=== PATIENT | female | born 1995 | race Two or more races ===

== ENCOUNTER 2018-07-16 22:49 | Emergency (ER) | payer MEDICAID, OTHER ==
[~2018-07-16] VITALS: Ht 154.9 cm; Wt 65.5 kg
[2018-07-16 23:36] LABS: Urine Bacteria NONE SEEN /hpf (None Seen); Urine Blood Negative /uL (Negative); Urine Mucus FEW (None Seen); Urine Specific Gravity 1.033 (1.001-1.035); Urine WBC 1 /hpf (0 - 5)
[2018-07-17 03:27] VITALS: BP 97/51
== END 2018-07-17 03:26 | disposition home or self-care (01) ==
LOC: ER 22:57
DX: O26.891 Other specified pregnancy related conditions, first trimester (principal); R10.84 Generalized abdominal pain; Z3A.01 Less than 8 weeks gestation of pregnancy
CPT/HCPCS: 36415; 76801; 81001; 81025; 84702; 86901

== ENCOUNTER 2019-02-02 16:40 | Observation (INO) | payer MEDICAID ==
[~2019-02-02] VITALS: Ht 157.5 cm; Wt 77.1 kg
[2019-02-05] MEDS ORDERED: PREN-96 PO (12:26)
[2019-02-05] MEDS ORDERED: FERR18TA2 PO (12:26)
== END 2019-02-05 12:20 | disposition home or self-care (01) | DRG 563 ==
LOC: LDRP 02-05 11:15
PROVIDERS: ADMIT Obstetrics & Gynecology; ATTEND Obstetrics & Gynecology
DX: O60.03 Preterm labor without delivery, third trimester (principal); Z3A.35 35 weeks gestation of pregnancy
CPT/HCPCS: 76818; G0378

== ENCOUNTER 2019-02-10 10:12 | Observation (INO) | payer MEDICAID ==
[~2019-02-10 10:12] MED LIST: FERR18TA2 PO; PREN-96 PO
[2019-02-10] MEDS ORDERED: PREN-96 PO (11:03)
[2019-02-10] MEDS ORDERED: FERR-7 PO (11:06)
== END 2019-02-10 11:20 | disposition home or self-care (01) | DRG 563 ==
LOC: LDRP 10:12
PROVIDERS: ADMIT Obstetrics & Gynecology; ATTEND Obstetrics & Gynecology
DX: O60.03 Preterm labor without delivery, third trimester (principal); Z3A.36 36 weeks gestation of pregnancy
CPT/HCPCS: 76818; A6257; G0378; 59025; 81002

== ENCOUNTER 2019-03-04 04:17 | Inpatient (IN) | payer MEDICAID ==
[~2019-03-04] VITALS: Ht 160 cm; Wt 79.8 kg
[~2019-03-04 04:17] MED LIST changes: +FERR-7 PO; -FERR18TA2 PO
[2019-03-04] MEDS ORDERED: LACT. RINGERS/OXYTOCIN 20UNITS 1,000 ML IV SCH (04:36)
[2019-03-04] MEDS ORDERED: PENICILLIN G POT 5MIL/D5 50ML 50 ML IV ONE (04:45)
[2019-03-04] MEDS ORDERED: DERMOPLAST 60ML BOTTLE TOP PRN (04:45)
[2019-03-04] MEDS ORDERED: WITCH HAZEL-GLYCERIN PAD TOP PRN (04:45)
[2019-03-04] MEDS ORDERED: PHISODERM TOP SOLN 240ML BTL TOP PRN (04:45)
[2019-03-04 05:23] LABS: Basophils # (auto) 0 uL; Basophils % (auto) 0.3 % (0.0-2.0); Eosinophils # (auto) 0 uL; Eosinophils % (auto) 0.3 % (0.0-7.0); Hematocrit 36.4 % (36.0-46.0); Lymphocytes # (auto) 1.5 uL; Lymphocytes % (auto) 20.6 % (10.0-50.0); Mean Corpuscular Hemoglobin 28.7 pg (28.0-32.0); Mean Corpuscular Volume 86.9 fL (80.0-100.0); Monocytes # (auto) 0.4 uL; Monocytes % (auto) 5.3 % (0.0-12.0); Neutrophils # (auto) 5.4 uL; Neutrophils % (auto) 73.5 % (37.0-80.0); Nucleated Red Blood Cells % 0.1 %; Platelet Count (auto) 239 10^3/uL (140-450); Red Blood Cells 4.19 10^6/uL (4.0-5.20); White Blood Cell 7.3 10^3/uL (4.4-10.8)
[2019-03-04 05:46] LABS: Albumin 2.6 g/dL (3.4-5.0); Calcium 9.2 mg/dL (8.5-10.1); Potassium 3.6 mmol/L (3.5-5.1)
[2019-03-04 05:48] LABS: Alcohol, Urine < 3.0 mg/dL (0-5); Amphetamine Screen, Urine NEGATIVE (NEGATIVE); Barbiturate Scree,Urine NEGATIVE (NEGATIVE); Benzodiazephine Screen, Urine NEGATIVE (NEGATIVE); Cannabinoid Screen, Urine NEGATIVE (NEGATIVE); Cocaine Screen, Urine NEGATIVE (NEGATIVE); Opiate Scree,Urine NEGATIVE (NEGATIVE); Phencyclidine Screen, Urine NEGATIVE (NEGATIVE); Urine Bacteria MANY /hpf (None Seen); Urine Blood TRACE /uL (Negative); Urine Mucus FEW (None Seen); Urine Specific Gravity 1.027 (1.001-1.035); Urine WBC 71 /hpf (0 - 5)
[2019-03-04 05:49] LABS: BUN/Creatinine Ratio 26.2; Bilirubin, Total 0.4 mg/dL (0.2-1.0); INR 0.91 (0.9-1.15); Partial Thromboplastin Time 24.8 sec (23.64-32.05); Prothrombin Time 9.9 sec (9.06-12.60); Total Protein 6.7 g/dL (6.4-8.2)
[2019-03-04] MEDS ORDERED: TETRACAINE 1% INJ 2 ML VIAL IJ ONE (06:59)
[2019-03-04] MEDS ORDERED: fentaNYL CITRATE 100 MCG/2 ML VL ONE (07:16)
[2019-03-04] MEDS ORDERED: MIDAZOLAM HCL 1MG/1ML-2 ML VIAL ONE (07:16)
[2019-03-04] MEDS ORDERED: MORPHINE SULF(PF) 0.5MG/ML 10ML VIAL ONE (07:16)
[2019-03-04] MEDS ORDERED: ceFAZolin 1GM/50ML 50 ML IV SCH (07:30)
[2019-03-04] MEDS ORDERED: OXYTOCIN 10 UNIT/ML 10ML VIAL ONE (07:30)
[2019-03-04] MEDS ORDERED: ONDANSETRON HCL 4 MG/2 ML VIAL IV PRN ×2 (07:30→08:30)
[2019-03-04] MEDS ORDERED: MORPHINE SULFATE 4 MG/ML SYR/VIAL IV PRN (07:30)
[2019-03-04] MEDS ORDERED: ceFAZolin 1GM VL ONE (07:30)
[2019-03-04] MEDS ORDERED: KETOROLAC TROMETH 30 MG/ML 1ML VIAL IV PRN (07:30)
[2019-03-04] MEDS ORDERED: diphenhdrAMINE HCL 50 MG/1 ML VL IV PRN (08:30)
[2019-03-04] MEDS ORDERED: HYDROmorphone HCL 2 MG/ML VL IV PRN (08:30)
[2019-03-04] MEDS ORDERED: NALBUPHINE HCL 10 MG/1ml INJECTION SUBCUT ONE (08:30)
[2019-03-04] MEDS ORDERED: MIDAZOLAM HCL 1MG/1ML-2 ML VIAL IV PRN (08:30)
[2019-03-04] MEDS ORDERED: ePHEDrine SULFATE 50 MG/ML AMP IV PRN (08:30)
[2019-03-04] MEDS ORDERED: NALOXONE HCL 0.4 MG/ML VIAL IV PRN (08:30)
[2019-03-04] MEDS ORDERED: DexAMETHasone SOD PHOS 10MG/1ML VIAL INJ IV PRN (08:30)
[2019-03-04] MEDS ORDERED: PENICILLIN G POTASSIUM 2,500,000 UNITS in D5W 5% 50 ML IV SCH (09:00)
--- NOTE | 2019-03-04 09:30 | NUR ---
Post Op for LDRP: Received patient from PACU via bed to room 108 B. Patient A/A/Ox4, abdominal binder and bilateral SCD's are in place, IV fluids placed on pump and infusing per order, incisional site dressing clean/dry/intact and March Catheter to gravity draining clear yellow urine.Incentive Spirometer at bedside and instruction on proper use with return demonstration done by patient.
--- NOTE | 2019-03-04 09:50 | NUR ---
Teaching: Reviewed information in [facility] booklet with patient. Discussed benefits of and risks associated with not . Discussed different positions, proper latch, feeding cues, and baby-led . All questions and concerns addressed at this time. Patient verbalized understanding of information.
--- NOTE | 2019-03-04 09:55 | NUR ---
received report from sophia alvarado rn patient in stable condition.
--- NOTE | 2019-03-04 09:55 | NUR ---
REPORT GIVEN TO Lina BARRAZA RN, TRANSFERRED CARE ON STABLE MOTHER.
[2019-03-04] MEDS: LACTATED RINGER'S 1,000 ML IV SCH ×3 (09:59→17:00)
[2019-03-04] MEDS: LACT. RINGERS/OXYTOCIN 20UNITS 1,000 ML IV SCH ×2 (09:59→14:05)
[2019-03-04 11:00] VITALS: BP 104/68
[2019-03-04 15:00] VITALS: BP 105/63
[2019-03-04] MEDS: ceFAZolin 1GM/50ML 50 ML IV SCH ×2 (16:00→23:39)
--- NOTE | 2019-03-04 17:15 | NUR ---
mansi care done.with small bleeding.[place] bag emptied and obtained 600 ml of clear yellow colored urine.
[2019-03-04] MEDS ORDERED: IBUPROFEN 800 MG TAB PO PRN (19:45)
[2019-03-04] MEDS ORDERED: SIMETHICONE 80 MG CHEWABLE TABLET PO PRN (19:45)
[2019-03-04] MEDS ORDERED: HYDROcodone-ACET 5/325MG TAB PO PRN (19:45)
[2019-03-04 19:51] LABS: Basophils # (auto) 0 uL; Basophils % (auto) 0.3 % (0.0-2.0); Eosinophils # (auto) 0 uL; Eosinophils % (auto) 0.1 % (0.0-7.0); Hematocrit 30.9 % (36.0-46.0); Hemoglobin 10.2 g/dL (12.2-16.2); Lymphocytes # (auto) 1.5 uL; Lymphocytes % (auto) 17.9 % (10.0-50.0); Mean Corpuscular Hemoglobin 28.8 pg (28.0-32.0); Monocytes # (auto) 0.4 uL; Monocytes % (auto) 4.9 % (0.0-12.0); Neutrophils # (auto) 6.3 uL; Neutrophils % (auto) 76.8 % (37.0-80.0); Platelet Count (auto) 195 10^3/uL (140-450); Red Blood Cells 3.55 10^6/uL (4.0-5.20); White Blood Cell 8.2 10^3/uL (4.4-10.8)
[2019-03-04 19:55] LABS: Red Cell Distribution Width 23.3 % (11.8-14.3)
--- NOTE | 2019-03-04 21:10 | NUR ---
Ambulation: Patient OOB with standby assistance by RN. Patient ambulated to bathroom with steady gait. Patient unable to void at this time. [facility] teaching provided with returned demonstration by patient. Clean gown provided and bed linen changed. Patient ambulating at bedside at this time.
[2019-03-04] MEDS: DOCUSATE SOD 100 MG CAP PO SCH (22:00)
[2019-03-04 23:00] VITALS: BP 98/59
[2019-03-05 03:00] VITALS: BP 102/69
[2019-03-05 07:00] VITALS: BP 107/75
[2019-03-05 07:07] LABS: Basophils # (auto) 0 uL; Basophils % (auto) 0.4 % (0.0-2.0); Eosinophils # (auto) 0 uL; Eosinophils % (auto) 0.1 % (0.0-7.0); Hematocrit 32.1 % (36.0-46.0); Hemoglobin 10.5 g/dL (12.2-16.2); Lymphocytes # (auto) 1.1 uL; Lymphocytes % (auto) 13.8 % (10.0-50.0); Mean Corpuscular Hemoglobin 28.6 pg (28.0-32.0); Mean Corpuscular Hgb Conc. 32.7 g/dL (32.0-36.0); Mean Corpuscular Volume 87.7 fL (80.0-100.0); Monocytes # (auto) 0.4 uL; Monocytes % (auto) 4.8 % (0.0-12.0); Neutrophils # (auto) 6.3 uL; Neutrophils % (auto) 80.9 % (37.0-80.0); Nucleated Red Blood Cells % 0.1 %; Platelet Count (auto) 189 10^3/uL (140-450); Red Blood Cells 3.66 10^6/uL (4.0-5.20); White Blood Cell 7.8 10^3/uL (4.4-10.8)
[2019-03-05 07:32] LABS: Red Cell Distribution Width 23.7 % (11.8-14.3)
[2019-03-05] MEDS: ceFAZolin 1GM/50ML 50 ML IV SCH (07:51)
[2019-03-05 08:06] LABS: RPR Non Reactive (Non Reactive)
[2019-03-05] MEDS: DOCUSATE SOD 100 MG CAP PO SCH ×2 (10:00→22:19)
[2019-03-05] MEDS ORDERED: HYDROcodone-ACET 5/325MG TAB PO PRN ×2 (10:30)
[2019-03-05] MEDS ORDERED: IBUPROFEN 800 MG TAB PO PRN (10:30)
[2019-03-05 11:00] VITALS: BP 112/71
[2019-03-05] MEDS: HYDROcodone-ACET 5/325MG TAB PO PRN ×2 (11:08→20:33)
--- NOTE | 2019-03-05 11:35 | NUR ---
dr. smith was called and notified about the fever of the patient.temperature-101.4,received order to start zozyn 3.375 mg q 6 hrs and tylenol 650 mg po q 4 hrs for fever.
[2019-03-05] MEDS ORDERED: ACETAMINOPHEN 325 MG TAB PO ONE (11:40)
[2019-03-05] MEDS ORDERED: ACETAMINOPHEN 325 MG TAB PO PRN (11:45)
[2019-03-05] MEDS: SIMETHICONE 80 MG CHEWABLE TABLET PO SCH ×3 (12:00→22:19)
--- NOTE | 2019-03-05 13:00 | NUR ---
temperature re-checked - 99.[address] whitley is aware,no new orders received.
[2019-03-05] MEDS: PIPERACILLIN-TAZOB 3.375GM 100 ML IV SCH ×2 (14:00→20:21)
[2019-03-05 15:00] VITALS: BP 109/63
[2019-03-05 19:30] VITALS: BP 108/76
--- NOTE | 2019-03-05 19:30 | NUR ---
LOWER ABDOMINAL INCISION CLEAN, DRY AND WELL APPROXIMATED, MARIO PRESENT AND INTACT. SITE LEFT OPEN TO AIR. Addendum: 03/05/19 at 2314 by Jenn Sanchez RN Amended: Links added.
[2019-03-05] MEDS: FERROUS SULFATE 325 MG TAB PO SCH (22:19)
[2019-03-05 23:00] VITALS: BP 110/70
[2019-03-06] MEDS: PIPERACILLIN-TAZOB 3.375GM 100 ML IV SCH ×3 (02:27→14:12)
--- NOTE | 2019-03-06 03:00 | NUR ---
IV INFILTRATED 20G IV TO RIGHT FOREARM INFILTRATED. IV DC'D WITH CLEAN TECHNIQUE, PRESSURE DRESSING APPLIED TO SITE. 20G PERIPHERAL IV INITIATED TO LEFT HAND, SITE FLUSHES WITHOUT RESISTANCE. TRANSPARENT DRESSING APPLIED AND SITE SECURED. IV ANTIBIOTICS INFUSING PER ORDERS. NO DISTRESS NOTED.
[2019-03-06 03:30] VITALS: BP 95/61
[2019-03-06] MEDS: HYDROcodone-ACET 5/325MG TAB PO PRN ×2 (06:07→17:09)
[2019-03-06 07:30] VITALS: BP 89/42
[2019-03-06] MEDS: FERROUS SULFATE 325 MG TAB PO SCH ×2 (10:12→22:38)
[2019-03-06] MEDS: DOCUSATE SOD 100 MG CAP PO SCH ×2 (10:12→22:38)
[2019-03-06] MEDS: DOCUSATE CALCIUM 240 MG CAP PO SCH (10:12)
[2019-03-06] MEDS: SIMETHICONE 80 MG CHEWABLE TABLET PO SCH (11:35)
[2019-03-06 12:39] VITALS: BP 110/75
--- NOTE | 2019-03-06 14:56 | NUR ---
IV no longer patent, call made to Dr Gordon to inform her, new orders received to d/c Zosyn and change to Keflex 500mg PO QID
--- NOTE | 2019-03-06 15:22 | NUR ---
IV removal IV DC'd with clean sterile technique, catheter fully intact. Pressure dressing applied to site. Patient tolerated well.
[2019-03-06 15:30] VITALS: BP 106/73
[2019-03-06] MEDS: CEPHALEXIN 250 MG CAP PO SCH (17:43)
[2019-03-06 19:00] VITALS: BP 113/78
--- NOTE | 2019-03-06 19:00 | NUR ---
LOWER ABDOMINAL INCISION CLEAN, DRY AND WELL APPROXIMATED WITH MARIO PRESENT AND INTACT. SITE LEFT OPEN TO AIR. Addendum: 03/06/19 at 2100 by Jenn Sanchez RN Amended: Links added.
[2019-03-06 23:30] VITALS: BP 118/72
[2019-03-07] MEDS: CEPHALEXIN 250 MG CAP PO SCH ×3 (00:05→12:12)
[2019-03-07 03:30] VITALS: BP 107/71
--- NOTE | 2019-03-07 06:05 | NUR ---
CNM NOTIFIED CNM NOTIFIED PT CURRENTLY HAS BREAK OUT OF COLD SORES AROUND MOUTH. PT STATES SHE FREQUENTLY HAS OUTBREAKS WHEN SHE HAS HAD A FEVER. ORDERS RECEIVED TO SEND PT HOME WITH VALTREX 1000MG PO #30 WITH REFILLS X5. ORDERS WILL BE FOLLOWED.
[2019-03-07 07:30] VITALS: BP 111/67
[2019-03-07] MEDS: DOCUSATE SOD 100 MG CAP PO SCH (10:35)
[2019-03-07] MEDS: DOCUSATE CALCIUM 240 MG CAP PO SCH (10:35)
[2019-03-07] MEDS: FERROUS SULFATE 325 MG TAB PO SCH (10:35)
[2019-03-07 11:05] VITALS: BP 100/56
[2019-03-07] MEDS ORDERED: MEASLES, MUMPS & RUBELLA VAC(MMRII) 0.5ML SC ONE (11:55)
--- NOTE | 2019-03-07 12:00 | NUR ---
Discharge: Discharge instructions given as ordered. Pt encouraged to follow up with [employer] as instructed. All questions and concerns addressed. Patient verbalized understanding. Medication reconciliation completed and copy given to patient. All required/requested vaccines given and copies of vaccinations given to patient. Patient encouraged to prepare to depart unit.
--- NOTE | 2019-03-07 12:55 | NUR ---
Discharge: Patient ambulated to vehicle with all personal belongings, accompanied by staff and family member. No distress noted at time of departure, no adverse changes in status since initial assessment.
== END 2019-03-07 12:35 | disposition home or self-care (01) | DRG 540 ==
LOC: LDRP 04:17
PROVIDERS: ADMIT Specialist; ATTEND Specialist
PROC: 10D00Z1 Extraction of Products of Conception, Low, Open Approach (ICD-10-PCS; principal; 2019-03-04 07:18)
PROC: 3E0234Z Introduction of Serum, Toxoid and Vaccine into Muscle, Percutaneous Approach (ICD-10-PCS; 2019-03-07)
DX: O34.211 Maternal care for low transverse scar from previous cesarean delivery (principal); O98.53 Other viral diseases complicating the puerperium; B00.9 Herpesviral infection, unspecified; O99.824 Streptococcus B carrier state complicating childbirth; Z23 Encounter for immunization; Z37.0 Single live birth; Z3A.39 39 weeks gestation of pregnancy
CPT/HCPCS: 36415; 51702; 59025; 80053; 80307; 81001; 85025; 85610; 85730; 86592; 86850; 86900; 86901; 90471; 94762; 96361; 96365; 96366; G0378; J0690; J2250; J2540; J2543; J2590; J7060

== ENCOUNTER → 2021-09-14 | Outpatient (CLI) | payer MEDICAID ==
[~2021-09-14] MED LIST changes: +DOCU-94 PO; +HYDR-4833 PO; +HYDR-4902 PO; +IBUP800T27 PO
[2021-09-14 11:31] LABS: Basophils # (auto) 0 10 ^3/uL (0-0.2); Eosinophils # (auto) 0 10 ^3/uL (0-0.8); Hematocrit 26.9 % (36.0-46.0); Monocytes # (auto) 0.3 10 ^3/uL (0-1.3); Neutrophils # (auto) 4.9 10 ^3/uL (1.6-8.6); Red Blood Cells 3.85 10^6/uL (4.0-5.20)
[2021-09-14 11:33] LABS: Basophils % (auto) 0.4 % (0.0-2.0); Eosinophils % (auto) 0.5 % (0.0-7.0); Hemoglobin 8.4 g/dL (12.2-16.2); Lymphocytes # (auto) 1.4 10 ^3/uL (0.4-5.4); Lymphocytes % (auto) 21.4 % (10.0-50.0); Mean Corpuscular Hemoglobin 21.9 pg (28.0-32.0); Mean Corpuscular Hgb Conc. 31.3 g/dL (32.0-36.0); Mean Corpuscular Volume 69.8 fL (80.0-100.0); Monocytes % (auto) 4.8 % (0.0-12.0); Neutrophils % (auto) 72.9 % (37.0-80.0); Nucleated Red Blood Cells % 0.1 %; Red Cell Distribution Width 18.5 % (11.8-14.3); White Blood Cell 6.7 10^3/uL (4.4-10.8)
[2021-09-15 12:06] LABS: RPR Non Reactive (Non Reactive)
== END | disposition home or self-care (01) ==
LOC: LAB 11:16
PROVIDERS: ATTEND Obstetrics & Gynecology
DX: Z34.80 Encounter for supervision of other normal pregnancy, unspecified trimester (principal)
CPT/HCPCS: 36415; 85025; 86592

== ENCOUNTER 2021-09-15 20:28 | Inpatient (IN) | payer MEDICAID ==
[~2021-09-15] VITALS: Ht 157.5 cm; Wt 80.3 kg
[~2021-09-15 20:28] MED LIST changes: -DOCU-94 PO; -HYDR-4833 PO; -HYDR-4902 PO; -IBUP800T27 PO
[2021-09-15] MEDS ORDERED: SODIUM CHLORIDE 0.9% 1,000 ML IV SCH (20:45)
[2021-09-15] MEDS ORDERED: SODIUM CITR/CITRIC ACID ORAL SOLN 30 ML PO ONE (20:45)
[2021-09-15] MEDS ORDERED: SODIUM FERR GLUC 62.5MG/5ML 125 MG in SODIUM CHL 0.9% 100 ML IV ONE (21:00)
[2021-09-15 22:20] LABS: Basophils # (auto) 0 10 ^3/uL (0-0.2); Basophils % (auto) 0.4 % (0.0-2.0); Eosinophils # (auto) 0 10 ^3/uL (0-0.8); Eosinophils % (auto) 0.4 % (0.0-7.0); Hematocrit 26.1 % (36.0-46.0); Hemoglobin 8.2 g/dL (12.2-16.2); Lymphocytes # (auto) 1.6 10 ^3/uL (0.4-5.4); Lymphocytes % (auto) 19.8 % (10.0-50.0); Mean Corpuscular Hemoglobin 22.2 pg (28.0-32.0); Mean Corpuscular Hgb Conc. 31.3 g/dL (32.0-36.0); Mean Corpuscular Volume 70.9 fL (80.0-100.0); Monocytes # (auto) 0.3 10 ^3/uL (0-1.3); Monocytes % (auto) 3.4 % (0.0-12.0); Neutrophils # (auto) 6.1 10 ^3/uL (1.6-8.6); Nucleated Red Blood Cells % 0.1 %; Red Blood Cells 3.69 10^6/uL (4.0-5.20); Red Cell Distribution Width 18.5 % (11.8-14.3)
[2021-09-15 22:21] LABS: Urine Bacteria FEW /hpf (None Seen); Urine Blood Negative /uL (Negative); Urine Mucus FEW (None Seen); Urine Specific Gravity 1.026 (1.001-1.035); Urine WBC 29 /hpf (0 - 5)
[2021-09-15 22:36] LABS: Amphetamine Screen, Urine NEGATIVE (NEGATIVE); Barbiturate Scree,Urine NEGATIVE (NEGATIVE); Benzodiazephine Screen, Urine NEGATIVE (NEGATIVE); Cannabinoid Screen, Urine NEGATIVE (NEGATIVE); Cocaine Screen, Urine NEGATIVE (NEGATIVE); Opiate Scree,Urine NEGATIVE (NEGATIVE); Phencyclidine Screen, Urine NEGATIVE (NEGATIVE)
[2021-09-15 22:36] LABS: Albumin 2.4 g/dL (3.4-5.0); Calcium 9.1 mg/dL (8.5-10.1); Potassium 3.5 mmol/L (3.5-5.1)
[2021-09-15 22:39] LABS: BUN/Creatinine Ratio 20.5
[2021-09-15 22:40] LABS: INR 0.97 (0.9-1.15); Partial Thromboplastin Time 21.9 sec (23.6-33.0)
[2021-09-15 22:41] LABS: Bilirubin, Total 0.4 mg/dL (0.2-1.0)
[2021-09-16] VITALS (19 sets, daily range): BP systolic 90–126; BP diastolic 49–76
[2021-09-16] MEDS ORDERED: LACTATED RINGER'S 1,000 ML IV ONE (05:00)
[2021-09-16 05:08] LABS: Basophils # (auto) 0 10 ^3/uL (0-0.2); Basophils % (auto) 0.4 % (0.0-2.0); Eosinophils # (auto) 0 10 ^3/uL (0-0.8); Hemoglobin 7.4 g/dL (12.2-16.2); Monocytes # (auto) 0.4 10 ^3/uL (0-1.3); Neutrophils # (auto) 4.4 10 ^3/uL (1.6-8.6); White Blood Cell 6.5 10^3/uL (4.4-10.8)
[2021-09-16 05:10] LABS: Eosinophils % (auto) 0.6 % (0.0-7.0); Hematocrit 22.8 % (36.0-46.0); Lymphocytes # (auto) 1.7 10 ^3/uL (0.4-5.4); Lymphocytes % (auto) 25.8 % (10.0-50.0); Mean Corpuscular Hemoglobin 22.8 pg (28.0-32.0); Mean Corpuscular Hgb Conc. 32.2 g/dL (32.0-36.0); Mean Corpuscular Volume 70.6 fL (80.0-100.0); Monocytes % (auto) 5.4 % (0.0-12.0); Neutrophils % (auto) 67.8 % (37.0-80.0); Nucleated Red Blood Cells % 0.4 %; Red Blood Cells 3.23 10^6/uL (4.0-5.20); Red Cell Distribution Width 18.6 % (11.8-14.3)
[2021-09-16] MEDS ORDERED: ceFAZolin 1GM/50ML 50 ML IV ONE (06:45)
[2021-09-16] MEDS ORDERED: BUPIVACAINE/DEXTROSE MPF 0.75% 2 ML AMP IT ONE (06:56)
[2021-09-16] MEDS ORDERED: PHENYLEPHRINE HCL 10 MG/ML VL ONE (06:56)
[2021-09-16] MEDS ORDERED: oxyTOCIN 10 UNIT/ML 10ML VIAL ONE (06:56)
[2021-09-16] MEDS ORDERED: ePHEDrine SULFATE 50 MG/ML AMP ONE (06:56)
[2021-09-16] MEDS ORDERED: GLYCOPYRROLATE 0.2 MG/ML 1ML VIAL ONE (06:56)
[2021-09-16] MEDS ORDERED: ONDANSETRON HCL 4 MG/2 ML VIAL ONE (06:56)
[2021-09-16] MEDS ORDERED: fentaNYL CITRATE 100 MCG/2 ML VL ONE (07:03)
[2021-09-16] MEDS ORDERED: MORPHINE SULF PF 2 MG/2 ML SYRG ONE (07:03)
[2021-09-16] MEDS: LACTATED RINGER'S 1,000 ML IV SCH ×2 (07:14→17:29)
[2021-09-16] MEDS ORDERED: CARBOPROST TROMETHAMINE 250 MCG/1ML VIAL IM ONE ×4 (07:55→08:37)
[2021-09-16] MEDS ORDERED: ONDANSETRON HCL 4 MG/2 ML VIAL IV PRN ×3 (08:15→08:45)
[2021-09-16] MEDS ORDERED: ceFAZolin 1GM/50ML 50 ML IV SCH ×2 (08:15→15:00)
[2021-09-16] MEDS ORDERED: GUM (CHEWING) 1 GUM CHEW CHEW ONE (08:15)
[2021-09-16] MEDS ORDERED: LACT. RINGERS/OXYTOCIN 20UNITS 1,000 ML IV ONE (08:15)
[2021-09-16] MEDS ORDERED: MORPHINE SULF PF 2 MG/2 ML SYRG IV PRN (08:15)
[2021-09-16] MEDS ORDERED: HYDR-4833 PO (08:21)
[2021-09-16] MEDS ORDERED: IBUP800T27 PO (08:22)
[2021-09-16] MEDS ORDERED: HYDR-4902 PO (08:22)
[2021-09-16] MEDS ORDERED: DOCU-94 PO (08:22)
[2021-09-16] MEDS ORDERED: METHYLERGONOVINE MALEATE 0.2 MG/ML AMP IM ONE (08:44)
[2021-09-16] MEDS ORDERED: diphenhdrAMINE HCL 50 MG/1 ML VL IV PRN (08:45)
[2021-09-16] MEDS ORDERED: NALOXONE HCL 0.4 MG/ML VIAL IV PRN (08:45)
[2021-09-16] MEDS ORDERED: DexAMETHasone SOD PHOS 10MG/1ML VIAL INJ IV PRN (08:45)
[2021-09-16] MEDS ORDERED: KETOROLAC TROMETH 30 MG/ML 1ML VIAL IV PRN (08:45)
[2021-09-16] MEDS ORDERED: FAMOTIDINE (10MG/ML) 2ML VL IV ONE (09:04)
[2021-09-16] MEDS: ACETAMINOPHEN IV 1000 MG/100ML (10MG/ML) IV PRN (12:53)
[2021-09-16 20:29] LABS: Basophils # (auto) 0 10 ^3/uL (0-0.2); Basophils % (auto) 0.2 % (0.0-2.0); Eosinophils # (auto) 0 10 ^3/uL (0-0.8); Hemoglobin 7.7 g/dL (12.2-16.2); Nucleated Red Blood Cells % 0.2 %
[2021-09-16 20:31] LABS: Eosinophils % (auto) 0.2 % (0.0-7.0); Hematocrit 24.4 % (36.0-46.0); Lymphocytes # (auto) 1.1 10 ^3/uL (0.4-5.4); Lymphocytes % (auto) 11.7 % (10.0-50.0); Mean Corpuscular Hemoglobin 22.8 pg (28.0-32.0); Mean Corpuscular Hgb Conc. 31.4 g/dL (32.0-36.0); Mean Corpuscular Volume 72.7 fL (80.0-100.0); Monocytes # (auto) 0.4 10 ^3/uL (0-1.3); Monocytes % (auto) 3.9 % (0.0-12.0); Neutrophils # (auto) 7.8 10 ^3/uL (1.6-8.6); Red Blood Cells 3.35 10^6/uL (4.0-5.20); Red Cell Distribution Width 19.5 % (11.8-14.3); White Blood Cell 9.3 10^3/uL (4.4-10.8)
[2021-09-16] MEDS: ceFAZolin 1GM/50ML 50 ML IV SCH (22:59)
[2021-09-17] VITALS (11 sets, daily range): BP systolic 95–123; BP diastolic 49–71
[2021-09-17] MEDS: ACETAMINOPHEN IV 1000 MG/100ML (10MG/ML) IV PRN (00:42)
[2021-09-17] MEDS: LACTATED RINGER'S 1,000 ML IV SCH (03:17)
[2021-09-17] MEDS ORDERED: HYDROcodone-ACET 5/325MG TAB PO PRN (06:30)
[2021-09-17] MEDS ORDERED: IBUPROFEN 800 MG TAB PO PRN (06:30)
[2021-09-17] MEDS ORDERED: BISACODYL 10 MG RECT SUPP PR PRN (06:30)
[2021-09-17] MEDS: ceFAZolin 1GM/50ML 50 ML IV SCH (06:57)
[2021-09-17 07:51] LABS: Basophils # (auto) 0 10 ^3/uL (0-0.2); Eosinophils # (auto) 0 10 ^3/uL (0-0.8); Hemoglobin 7.8 g/dL (12.2-16.2); Monocytes # (auto) 0.4 10 ^3/uL (0-1.3)
[2021-09-17 07:53] LABS: Basophils % (auto) 0.5 % (0.0-2.0); Eosinophils % (auto) 0.2 % (0.0-7.0); Hematocrit 23.9 % (36.0-46.0); Lymphocytes # (auto) 1.4 10 ^3/uL (0.4-5.4); Mean Corpuscular Hemoglobin 23.7 pg (28.0-32.0); Mean Corpuscular Hgb Conc. 32.5 g/dL (32.0-36.0); Mean Corpuscular Volume 72.8 fL (80.0-100.0); Monocytes % (auto) 3.6 % (0.0-12.0); Neutrophils # (auto) 8.6 10 ^3/uL (1.6-8.6); Neutrophils % (auto) 82.7 % (37.0-80.0); Nucleated Red Blood Cells % 0.1 %; Red Blood Cells 3.29 10^6/uL (4.0-5.20); Red Cell Distribution Width 19.7 % (11.8-14.3); White Blood Cell 10.5 10^3/uL (4.4-10.8)
[2021-09-17 08:06] LABS: RPR Non Reactive (Non Reactive)
[2021-09-17] MEDS ORDERED: FERR-20 PO (09:20)
[2021-09-17] MEDS: DOCUSATE SOD 100 MG CAP PO SCH ×2 (10:01→22:01)
[2021-09-17] MEDS: DOCUSATE CALCIUM 240 MG CAP PO SCH (10:01)
[2021-09-17] MEDS: SIMETHICONE 80 MG CHEWABLE TABLET PO SCH ×3 (13:10→22:01)
[2021-09-17] MEDS: FERROUS SULFATE 325mg EC TAB PO SCH ×2 (13:11→17:46)
[2021-09-17] MEDS: HYDROcodone-ACET 5/325MG TAB PO PRN (18:55)
[2021-09-18 03:00] VITALS: BP 90/50
[2021-09-18] MEDS: HYDROcodone-ACET 5/325MG TAB PO PRN ×3 (03:14→23:33)
[2021-09-18] MEDS: SIMETHICONE 80 MG CHEWABLE TABLET PO SCH ×4 (05:36→21:34)
[2021-09-18] MEDS: FERROUS SULFATE 325mg EC TAB PO SCH ×3 (10:44→19:06)
[2021-09-18] MEDS: DOCUSATE SOD 100 MG CAP PO SCH ×2 (10:44→21:34)
[2021-09-18] MEDS: DOCUSATE CALCIUM 240 MG CAP PO SCH (10:45)
[2021-09-18 15:00] VITALS: BP 120/67
[2021-09-18 19:00] VITALS: BP 112/64
[2021-09-18 23:00] VITALS: BP 115/64
[2021-09-19 03:00] VITALS: BP 92/54
[2021-09-19] MEDS: SIMETHICONE 80 MG CHEWABLE TABLET PO SCH (05:32)
[2021-09-19 06:40] VITALS: BP 115/71
[2021-09-19] MEDS: FERROUS SULFATE 325mg EC TAB PO SCH (08:08)
[2021-09-19] MEDS: HYDROcodone-ACET 5/325MG TAB PO PRN (08:09)
[2021-09-19 10:30] VITALS: BP 115/63
== END 2021-09-19 11:15 | disposition home or self-care (01) | DRG 539 ==
LOC: LDRP 20:28
PROVIDERS: ADMIT Obstetrics & Gynecology; ATTEND Obstetrics & Gynecology
PROC: 0UL70CZ Occlusion of Bilateral Fallopian Tubes with Extraluminal Device, Open Approach (ICD-10-PCS; 2021-09-16)
PROC: 30233N1 Transfusion of Nonautologous Red Blood Cells into Peripheral Vein, Percutaneous Approach (ICD-10-PCS; 2021-09-16)
PROC: 10D00Z1 Extraction of Products of Conception, Low, Open Approach (ICD-10-PCS; principal; 2021-09-16 07:23)
DX: O34.211 Maternal care for low transverse scar from previous cesarean delivery (principal); O99.02 Anemia complicating childbirth; Z20.822 Contact with and (suspected) exposure to COVID-19; Z30.2 Encounter for sterilization; Z37.0 Single live birth
CPT/HCPCS: 36415; 59025; 80053; 80307; 81001; 85025; 85610; 85730; 86592; 86850; 86900; 86901; 86920; 87426; 94760; 94762; 96360; 96361; 96365; 96366; G0378; J0131; J0690; J2405; J2590; J3490